=== PATIENT | female | born 1950 | race Caucasian/White ===

== ENCOUNTER 2016-07-19 13:19 | Observation (INO) | payer OTHER ==
[~2016-07-19] VITALS: Ht 162.6 cm; Wt 96.2 kg
[2016-07-19 14:55] LABS: HEMOGLOBIN 16.4 gm/dl (12.3-15.3); RED BLOOD COUNT 5.26 M/UL (4.00-5.10); WHITE BLOOD COUNT 7.9 K/UL (4.5-11.0)
[2016-07-19 15:20] LABS: BUN/CREATININE RATIO 20 (0-10)
[2016-07-19] MEDS ORDERED: SYNTHROID88 MCG PO (23:16)
[2016-07-19] MEDS ORDERED: BYSTOLIC10 MG PO (23:17)
[2016-07-19] MEDS ORDERED: ACCUPRIL20 MG PO (23:17)
[2016-07-19] MEDS ORDERED: HYDROCHLOROTHIA25 MG PO (23:18)
[2016-07-19] MEDS ORDERED: JANUVIA100 MG PO (23:18)
[2016-07-19] MEDS ORDERED: FARXIGA10 MG PO (23:18)
[2016-07-19] MEDS ORDERED: METFORMIN HCL500 MG PO (23:19)
[2016-07-19] MEDS ORDERED: FENOFIBRATE145 MG PO (23:19)
[2016-07-20 06:06] LABS: HEMOGLOBIN 15.7 gm/dl (12.3-15.3); WHITE BLOOD COUNT 9.8 K/UL (4.5-11.0)
[2016-07-20 06:38] LABS: BUN/CREATININE RATIO 19 (0-10)
[2016-07-20] MEDS ORDERED: LIPITOR TAB 2020 MG PO (15:55)
[2016-07-20] MEDS ORDERED: ASPIRIN CHEWABL81 MG PO (15:55)
== END 2016-07-20 16:52 | disposition home or self-care (01) ==
LOC: ER1 13:19 → M/S 19:45 → ZEROF 19:45 → M/S 22:57
PROVIDERS: Student in an Organized Health Care Education/Training Program; ADMIT Internal Medicine
DX: R51 Headache (principal); R20.9 Unspecified disturbances of skin sensation; R27.0 Ataxia, unspecified; E78.00 Pure hypercholesterolemia, unspecified; I10 Essential (primary) hypertension; E11.9 Type 2 diabetes mellitus without complications; E78.5 Hyperlipidemia, unspecified; E03.9 Hypothyroidism, unspecified; Z79.82 Long term (current) use of aspirin; Z82.49 Family history of ischemic heart disease and other diseases of the circulatory system; Z83.3 Family history of diabetes mellitus; Z88.8 Allergy status to other drugs, medicaments and biological substances
CPT/HCPCS: ECHO; 36415; 70450; 70544; 70551; 71010; 80048; 80053; 81001; 82550; 82553; 83874; 84484; 85025; 87077; 87086; 87186; 93005; 93306; 93880; 96361; 96374; 96375; 99285; G0378; J1200; J2765; J7030

== ENCOUNTER → 2021-01-09 | Outpatient (CLI) | payer OTHER ==
[~2021-01-09] MED LIST: ACCUPRIL20 MG PO; ASPIRIN CHEWABL81 MG PO; BYSTOLIC10 MG PO; CRESTOR10 MG PO; FARXIGA10 MG PO; FENOFIBRATE145 MG PO; HYDROCHLOROTHIA25 MG PO; JANUVIA100 MG PO; LIPITOR TAB 2020 MG PO; METFORMIN HCL500 MG PO; SYNTHROID88 MCG PO
== END ==
LOC: SLEEP 13:03
DX: G47.33 Obstructive sleep apnea (adult) (pediatric) (principal)
CPT/HCPCS: 95811

== ENCOUNTER → 2021-02-09 | Outpatient (CLI) | payer OTHER | LOC: MAMO 13:15 | DX: Z12.31 Encounter for screening mammogram for malignant neoplasm of breast (principal) | CPT/HCPCS: 77063; 77067 ==

== ENCOUNTER → 2022-01-01 | Outpatient (CLI) | payer OTHER | LOC: CT 07:56 | DX: S05.91XA Unspecified injury of right eye and orbit, initial encounter (principal); W19.XXXA Unspecified fall, initial encounter | CPT/HCPCS: 70480 ==

== ENCOUNTER → 2022-01-04 | Outpatient (CLI) | payer OTHER | LOC: MRI 12:52 | DX: I65.23 Occlusion and stenosis of bilateral carotid arteries (principal); R41.3 Other amnesia; G45.9 Transient cerebral ischemic attack, unspecified | CPT/HCPCS: 70551; 93880 ==